=== PATIENT | female | born 1970 | race Asian ===

== ENCOUNTER 2016-09-20 13:54 | Emergency (ER) | payer OTHER ==
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
[2016-09-20] MEDS ORDERED: ACETAMINOPHEN 500 MG TAB PO ONE (15:29)
[2016-09-20 16:09] VITALS: BP 119/85; PULSE 54; RESP 18; TEMP 98.1; O2SAT 95
== END 2016-09-20 16:04 | disposition home or self-care (01) ==
LOC: EDUNIT#
DX: S16.1XXA Strain of muscle, fascia and tendon at neck level, initial encounter (principal); T14.8 Other injury of unspecified body region; V43.62XA Car passenger injured in collision with other type car in traffic accident, initial encounter; Y92.410 Unspecified street and highway as the place of occurrence of the external cause; Y99.8 Other external cause status